=== PATIENT | male | born 1930 | race Caucasian/White ===

== ENCOUNTER 2018-02-08 11:39 | Observation (INO) ==
[2018-02-08] MEDS ORDERED: Isovue-370 500 ML INFUS..BTL IV ONE (12:31)
[2018-02-08] MEDS ORDERED: Ondansetron 4 MG/2 ML VIAL IVP ONE (12:33)
[2018-02-08] MEDS ORDERED: *HR* HYDROmorphone (PF) 1 MG/ML SYRINGE IVP ONE (12:33)
--- NOTE | 2018-02-08 12:35 | Emergency Department Note ---
Disposition Clinical Impression: Welsh catheter in place UTI (urinary tract infection) Qualifiers: Urinary tract infection type: catheter-associated UTI Indwelling urinary catheter type: unspecified Encounter type: initial encounter Qualified Code(s): T83.511A - Infection and inflammatory reaction due to indwelling urethral catheter, initial encounter; N39.0 - Urinary tract infection, site not specified Hematuria Qualifiers: Hematuria type: gross Qualified Code(s): R31.0 - Gross hematuria Disposition: Admitted As Inpatient Condition: Good Forms: ED Satisfaction Letter General Adult HPI - General Chief complaint: ED Urogenital-Male Stated complaint: Bladder Spasms Time Seen by Provider: 02/08/18 11:54 Source: patient Limitations: no limitations Nursing Notes Reviewed: Yes Vital Signs Reviewed: Yes - History of Present Illness HPI Narrative: Patient presenting today for evaluation of pain and "bladder spasms". The patient has a history of recent urology procedure. Patient has been seen by Dr. Quinn. Dr. Quinn did call me prior to be writing the note and explained this as a tracheotomy. It appears on exam that he opened the foreskin and dilated the meatus. Patient has a 14-[place] catheter that has been placed that was very difficult to placed by urology and urology does not recommend removal. The patient states that he has had lower abdominal pain with associated hematuria. Patient has had leakage around the catheter causing him to need to wear depends. The patient will undergo further blood work as well as CT imaging to further evaluate pain and condition. Pain Scale: 8 - Related Data Home Medications Medication Instructions Recorded Confirmed Aspirin [Lo-Dose Aspirin EC] 81 mg PO DAILY 06/03/16 06/03/16 Cholecalciferol (Vitamin D3) 1,000 unit PO DAILY 06/03/16 06/03/16 [Vitamin D3] Clotrimazole 1% CRM [Lotrimin 1%] 06/03/16 Famotidine [Pepcid] 40 mg PO DAILY 06/03/16 06/03/16 Gabapentin [Neurontin] 300 mg PO TID PRN 06/03/16 06/03/16 Meclizine [Antivert] 25 mg PO BID PRN 06/03/16 06/03/16 Melatonin [Melatin] 3 mg PO HS 06/03/16 06/03/16 Multivitamin [Multivitamins] 1 tab PO DAILY 06/03/16 06/03/16 Pantoprazole Sodium 40 mg PO DAILY 06/03/16 06/03/16 Tamsulosin [Flomax] 0.4 mg PO DAILY 06/03/16 06/03/16 clonazePAM [Klonopin] 0.5 mg PO BID 06/03/16 06/03/16 Previous Rx's Medication Instructions Recorded Lactobacillus [Culturelle] 1 each PO BID #10 cap.sprink 06/05/16 levoFLOXacin [Levaquin] 500 mg PO DAILY #5 tablet 06/05/16 Allergies Allergy/AdvReac Type Severity Reaction Status Date / Time No Known Allergies Allergy Verified 06/03/16 19:38 Review of Systems: As Per HPI Constitutional: Denies: fever, chills Cardiovascular: Denies: chest pain, palpitations Respiratory: Denies: cough, dyspnea Gastrointestinal: Reports: abdominal pain, nausea. Denies: vomiting, diarrhea Genitourinary: Reports: other (recent welsh with hematuria) Integumentary: Denies: rash, abrasion Neurological: Denies: headache, weakness Past Medical History - Past Medical History Medical history: Reports: cancer, GERD, other Surgical history: Reports: herniorrhaphy Psychiatric history: Reports: anxiety - Social History Smoking Status: Never smoker Smokeless Tobacco Status: No Alcohol use: Reports: none Drug use: Reports: none Physical Exam General: distress secondary to pain and spasms. Head: Normocephalic Atraumatic Eyes: PERRL ENT: Airway patent, no stridor Neck: supple Chest: Lungs clear to auscultation bilateral Cardiac: Regular rhythm Abdomen: soft, moderate tenderness to suprapubic region with associated gaurding. No rebound or CVA tenderness Welsh in place wiht pain to glans penis. Asssocated posterior slit without erythema. Musculoskeletal: Calves symmetric, nontender Skin: No rash, normal skin tone Neuro: awake, alert, hard of hearing. - General Limitations: no limitations General appearance: alert Course - Consultations Consultation #1: Discussed with urology. Complicated meatotomy. Do not remove Welsh. Will be evaluated in patient. Recommends belladonna/opium suppository for spasms. Consultation #2: Discussed with hospitalist. Patient accepted for admission. Vital Signs Temperature 98.2 F 02/08/18 11:41 Pulse Rate 104 02/08/18 11:41 Respiratory Rate 18 02/08/18 11:41 Blood Pressure 131/62 02/08/18 11:41 O2 Sat by Pulse Oximetry 96 02/08/18 11:41 Temperature 98.2 F 02/08/18 12:17 Pulse Rate 104 02/08/18 12:17 Respiratory Rate 18 02/08/18 12:17 Blood Pressure 131/62 02/08/18 12:17 O2 Sat by Pulse Oximetry 96 02/08/18 12:17 Oxygen Delivery Oxygen Delivery Room Air Medical Decision Making - Lab Data Result diagrams: 02/08/18 12:30 02/08/18 12:30 Lab Results 02/08/18 02/08/18 02/08/18 Range/Units 12:30 12:30 12:30 WBC 21.8 H (4.3-11.1) K/mcL RBC 4.89 (4.19-5.50) M/mcL Hgb 15.1 (12.9-16.9) g/dL Hct 44.9 (37.5-50.1) % MCV 91.8 (83.0-100.0) fL MCH 30.9 (28.0-33.3) pg MCHC 33.6 (31.6-35.5) g/dL RDW 14.3 (11.5-14.5) % Plt Count 181 (140-400) K/mcL MPV 11.3 (9.4-12.4) fL Immature Gran % 0.8 (0-4) % Seg Neutrophils % 88.4 % Lymphocytes % 3.1 % Monocytes % 7.6 % Eosinophils % 0.0 % Basophils % 0.1 % Neutrophils # 19.2 H (1.6-8.9) K/mcL Lymphocytes # 0.7 (0.6-4.6) K/mcL Monocytes # 1.7 H (0.0-1.3) K/mcL Eosinophils # 0.0 (0.0-0.6) K/mcL Basophils # 0.0 (0.0-0.2) K/mcL PT 14.3 H (9.4-12.1) Seconds INR 1.3 Sodium 136 (136-145) mEq/L Potassium 4.2 (3.5-5.1) mEq/L Chloride 104 (98-107) mEq/L Carbon Dioxide 26 (23-29) mEq/L BUN 25 H (8-23) mg/dL Creatinine 1.23 (0.70-1.30) mg/dL Est GFR ( Amer) > 60 (> 60) Est GFR (Non-Af Amer) 56 L (> 60) BUN/Creatinine Ratio 20 (6-26) Glucose 114 H (70-105) mg/dL Calculated Osmolality 287 (280-300) Calcium 9.1 (8.6-10.3) mg/dL Total Bilirubin 1.2 H (0.3-1.0) mg/dL AST 11 L (13-39) Units/L ALT 10 (7-52) Units/L Alkaline Phosphatase 69 (34-104) Units/L Serum Total Protein 6.8 (6.4-8.9) g/dL Albumin 3.7 (3.5-5.7) g/dL Globulin 3.1 (2.4-3.5) g/dL Albumin/Globulin Ratio 1.2 (1.1-2.2) Urine Color (Yellow) Urine Clarity (Clear) Urine pH (5.0-8.0) pH Units Ur Specific [place] (1.010-1.025) Urine Protein (Neg-Trace) mg/dL Urine Glucose (UA) (Normal) mg/dL Urine Ketones (Negative) mg/dL Urine Blood (Negative) Urine Nitrite (Negative) Urine Bilirubin (Negative) Urine Urobilinogen (Normal) mg/dL Ur Leukocyte Esterase (Negative) Urine Microscopic RBC (0-3) per hpf Urine Microscopic WBC (0-3) per hpf Ur Squamous Epith Cells (None-Few) per lpf Urine Bacteria (None-Few) per hpf Hyaline Casts (None-Few) per lpf Ur Culture Indicated? (NO) 02/08/18 Range/Units 14:20 WBC (4.3-11.1) K/mcL RBC (4.19-5.50) M/mcL Hgb (12.9-16.9) g/dL Hct (37.5-50.1) % MCV (83.0-100.0) fL MCH (28.0-33.3) pg MCHC (31.6-35.5) g/dL RDW (11.5-14.5) % Plt Count (140-400) K/mcL MPV (9.4-12.4) fL Immature Gran % (0-4) % Seg Neutrophils % % Lymphocytes % % Monocytes % % Eosinophils % % Basophils % % Neutrophils # (1.6-8.9) K/mcL Lymphocytes # (0.6-4.6) K/mcL Monocytes # (0.0-1.3) K/mcL Eosinophils # (0.0-0.6) K/mcL Basophils # (0.0-0.2) K/mcL PT (9.4-12.1) Seconds INR Sodium (136-145) mEq/L Potassium (3.5-5.1) mEq/L Chloride (98-107) mEq/L Carbon Dioxide (23-29) mEq/L BUN (8-23) mg/dL Creatinine (0.70-1.30) mg/dL Est GFR ( Amer) (> 60) Est GFR (Non-Af Amer) (> 60) BUN/Creatinine Ratio (6-26) Glucose (70-105) mg/dL Calculated Osmolality (280-300) Calcium (8.6-10.3) mg/dL Total Bilirubin (0.3-1.0) mg/dL AST (13-39) Units/L ALT (7-52) Units/L Alkaline Phosphatase (34-104) Units/L Serum Total Protein (6.4-8.9) g/dL Albumin (3.5-5.7) g/dL Globulin (2.4-3.5) g/dL Albumin/Globulin Ratio (1.1-2.2) Urine Color Cecilia A (Yellow) Urine Clarity Turbid A (Clear) Urine pH 6.5 (5.0-8.0) pH Units Ur Specific [place] 1.021 (1.010-1.025) Urine Protein >=300 H (Neg-Trace) mg/dL Urine Glucose (UA) Normal (Normal) mg/dL Urine Ketones 15 H (Negative) mg/dL Urine Blood Large H (Negative) Urine Nitrite Positive A (Negative) Urine Bilirubin Moderate H (Negative) Urine Urobilinogen Normal (Normal) mg/dL Ur Leukocyte Esterase Large H (Negative) Urine Microscopic RBC TNTC H (0-3) per hpf Urine Microscopic WBC TNTC H (0-3) per hpf Ur Squamous Epith Cells Many H (None-Few) per lpf Urine Bacteria Many H (None-Few) per hpf Hyaline Casts None Seen (None-Few) per lpf Ur Culture Indicated? NO. A (NO)
[2018-02-08 12:46] LABS: Basophils % 0.1 %; Hematocrit 44.9 % (37.5-50.1); Hemoglobin 15.1 g/dL (12.9-16.9); Immature Granulocytes % 0.8 % (0-4); Lymphocytes # 0.7 K/mcL (0.6-4.6); Lymphocytes % 3.1 %; Mean Corpuscular HGB Conc 33.6 g/dL (31.6-35.5); Mean Corpuscular Hemoglobin 30.9 pg (28.0-33.3); Mean Corpuscular Volume 91.8 fL (83.0-100.0); Mean Platelet Volume 11.3 fL (9.4-12.4); Monocytes # 1.7 K/mcL (0.0-1.3); Monocytes % 7.6 %; Neutrophils # 19.2 K/mcL (1.6-8.9); Platelet Count 181 K/mcL (140-400); Red Blood Count 4.89 M/mcL (4.19-5.50); Red Cell Distribution Width 14.3 % (11.5-14.5); Segmented Neutrophils % 88.4 %
[2018-02-08 12:54] LABS: INR 1.3; Prothrombin Time 14.3 Seconds (9.4-12.1)
[2018-02-08 13:06] LABS: Alanine Aminotransferase 10 Units/L (7-52); Albumin 3.7 g/dL (3.5-5.7); Albumin/Globulin Ratio 1.2 (1.1-2.2); Alkaline Phosphatase 69 Units/L (34-104); Aspartate Amino Transferase 11 Units/L (13-39); BUN/Creatinine Ratio 20 (6-26); Bilirubin,Total 1.2 mg/dL (0.3-1.0); Blood Urea Nitrogen 25 mg/dL (8-23); Calcium 9.1 mg/dL (8.6-10.3); Carbon Dioxide 26 mEq/L (23-29); Chloride 104 mEq/L (98-107); Globulin 3.1 g/dL (2.4-3.5); Glucose 114 mg/dL (70-105); Osmolality,Calculated 287 (280-300); Potassium 4.2 mEq/L (3.5-5.1); Sodium 136 mEq/L (136-145); Total Protein 6.8 g/dL (6.4-8.9); eGFR For Non-African Americans 56 (> 60)
[2018-02-08] MEDS ORDERED: *HR* Belladonna Alkaloids/Opium 30 MG RECTAL SUPPOSITORY RC STA (13:21)
[2018-02-08 14:53] LABS: Bilirubin,Urine Moderate (Negative); Blood,Urine Large (Negative); Clarity,Urine Turbid (Clear); Glucose,Urine (UA) Normal (Normal); Ketones,Urine 15 mg/dL (Negative); Leukocyte Esterase,Urine Large (Negative); Nitrite,Urine Positive (Negative); PH,Urine 6.5 pH Units (5.0-8.0); Protein,Urine >=300 mg/dL (Neg-Trace); Specific Gravity,Urine 1.021 (1.010-1.025); Urobilinogen,Urine Normal (Normal)
[2018-02-08 14:55] LABS: Bacteria,Urine Many per hpf (None-Few); Hyaline Casts,Urine None Seen per lpf (None-Few); RBC,Urine TNTC per hpf (0-3); Squamous Epithelial Cell,Urine Many per lpf (None-Few); WBC,Urine TNTC per hpf (0-3)
[2018-02-08 14:57] LABS: Color,Urine Amber (Yellow)
[2018-02-08] MEDS ORDERED: Gabapentin 300 MG CAPSULE PO PRN (16:47)
[2018-02-08] MEDS ORDERED: *HR* Belladonna Alkaloids/Opium 30 MG RECTAL SUPPOSITORY RC PRN (16:49)
[2018-02-08] MEDS ORDERED: Acetaminophen 325 MG TABLET PO PRN (16:50)
[2018-02-08] MEDS ORDERED: Naloxone 0.4 MG/ML INJ IVP PRN (16:50)
--- NOTE | 2018-02-08 16:51 | Urology - Consult Note ---
Date of Encounter: 02/08/18 Time of Encounter: 16:49 - Assessment and Plan (1) Hematuria Current Visit: Yes Status: Acute Assessment and plan: More likely is concentrated urine. Patient does have some hematuria but this is minimal. No need to change catheter at this time Qualifiers: Hematuria type: gross Qualified Code(s): R31.0 - Gross hematuria (2) Urinary tract infection Current Visit: Yes Status: Acute Assessment and plan: Recommend broad-spectrum antibiotics until cultures return. I have added B and O suppositories to the patient's medication regimen as the patient is having significant bladder spasms. Qualifiers: Urinary tract infection type: catheter-associated UTI Indwelling urinary catheter type: unspecified Encounter type: initial encounter Qualified Cod e(s): T83.511A - Infection and inflammatory reaction due to indwelling urethral catheter, initial encounter; N39.0 - Urinary tract infection, site not specified Urology CN:HPI Consult date: 02/08/18 Reason for consult Urology: Other (uti) Requesting physician: Yunier Dolan History of present illness: Daniel is an 87-year-old male who underwent a meatotomy this past Wednesday. Patient presented to his primary care provider's office today secondary to fever. Patient was then moved to the emergency department. CT scan was performed which showed a significantly trabeculated bladder with some left-sided hydronephrosis. Patient also with a leukocytosis of 21,000. Patient with significant bladder spasms leaking around his catheter. Past Med Surg Social Fam HX - Past Medical History Medical history: cancer, GERD, other Additional medical history: skin Psychiatric history: anxiety - Past Surgical History Surgical History: herniorrhaphy - Social History Smoking Status: Never smoker Smokeless Tobacco Status: No Alcohol use: none Drug use: none Medications and Allergies Aspirin [Lo-Dose Aspirin EC] 81 mg PO DAILY 06/03/16 [History] Cholecalciferol (Vitamin D3) [Vitamin D3] 1,000 unit PO DAILY 06/03/16 [History] Famotidine [Pepcid] 40 mg PO BID 06/03/16 [History] Gabapentin [Neurontin] 300 mg PO TID PRN 06/03/16 [History] Melatonin [Melatin] 3 mg PO HS 06/03/16 [History] Multivitamin [Multivitamins] 1 tab PO DAILY 06/03/16 [History] Pantoprazole Sodium 40 mg PO BID 06/03/16 [History] Finasteride [Proscar] 5 mg PO DAILY 02/08/18 [History] Fluticasone Propionate Nasal [Flonase] 1 spr NS DAILY 02/08/18 [History] Sertraline [Zoloft] 150 mg PO DAILY 02/08/18 [History] Sucralfate [Carafate] 1 gm PO QIDAC 02/08/18 [History] predniSONE [PredniSONE] See Taper PO AD 02/08/18 [History] Allergy/AdvReac Type Severity Reaction Status Date / Time No Known Allergies Allergy Verified 06/03/16 19:38 Review of Systems - Constitutional fever(s), no chills - EENT Nose, mouth and throat: no dizziness - Cardiovascular no chest pain - Respiratory no cough - Gastrointestinal abdominal pain, no nausea, no vomiting Exam Initial Vital Signs Temp Pulse Resp BP Pulse Ox 98.2 F 104 18 131/62 96 02/08/18 11:41 02/08/18 11:41 02/08/18 11:41 02/08/18 11:41 02/08/18 11:41 - General physical appearance Present: well developed, well nourished - Eyes Present: PERRL - Respiratory Present: normal respiratory effort - Cardiovascular Cardiovascular exam IM: RRR - Abdomen Abdomen: Present: soft - Genitourinary other (Catheter with dark urine in tubing, catheter irrigated well) Urology Results - Labs 02/08/18 12:30 02/08/18 12:30 Abnormal lab results WBC 21.8 K/mcL (4.3-11.1) H 02/08/18 12:30 Neutrophils # 19.2 K/mcL (1.6-8.9) H 02/08/18 12:30 Monocytes # 1.7 K/mcL (0.0-1.3) H 02/08/18 12:30 PT 14.3 Seconds (9.4-12.1) H 02/08/18 12:30 BUN 25 mg/dL (8-23) H 02/08/18 12:30 Est GFR (Non-Af Amer) 56 (> 60) L 02/08/18 12:30 Glucose 114 mg/dL (70-105) H 02/08/18 12:30 Total Bilirubin 1.2 mg/dL (0.3-1.0) H 02/08/18 12:30 AST 11 Units/L (13-39) L 02/08/18 12:30 Urine Color Cec[place] (Yellow) A 02/08/18 14:20 Urine Clarity Turbid (Clear) A 02/08/18 14:20 Urine Protein >=300 mg/dL (Neg-Trace) H 02/08/18 14:20 Urine Ketones 15 mg/dL (Negative) H 02/08/18 14:20 Urine Blood Large (Negative) H 02/08/18 14:20 Urine Nitrite Positive (Negative) A 02/08/18 14:20 Urine Bilirubin Moderate (Negative) H 02/08/18 14:20 Ur Leukocyte Esterase Large (Negative) H 02/08/18 14:20 Urine Microscopic RBC TNTC per hpf (0-3) H 02/08/18 14:20 Urine Microscopic WBC TNTC per hpf (0-3) H 02/08/18 14:20 Ur Squamous Epith Cells Many per lpf (None-Few) H 02/08/18 14:20 Urine Bacteria Many per hpf (None-Few) H 02/08/18 14:20 Ur Culture Indicated? NO. (NO) A 02/08/18 14:20 Diabetes panel 02/08/18 Range/Units 12:30 Sodium 136 (136-145) mEq/L Potassium 4.2 (3.5-5.1) mEq/L Chloride 104 (98-107) mEq/L Carbon Dioxide 26 (23-29) mEq/L BUN 25 H (8-23) mg/dL Creatinine 1.23 (0.70-1.30) mg/dL Glucose 114 H (70-105) mg/dL Calcium 9.1 (8.6-10.3) mg/dL AST 11 L (13-39) Units/L ALT 10 (7-52) Units/L Alkaline Phosphatase 69 (34-104) Units/L Albumin 3.7 (3.5-5.7) g/dL Calcium panel 02/08/18 Range/Units 12:30 Calcium 9.1 (8.6-10.3) mg/dL Albumin 3.7 (3.5-5.7) g/dL Pituitary panel 02/08/18 Range/Units 12:30 Sodium 136 (136-145) mEq/L Potassium 4.2 (3.5-5.1) mEq/L Chloride 104 (98-107) mEq/L Carbon Dioxide 26 (23-29) mEq/L BUN 25 H (8-23) mg/dL Creatinine 1.23 (0.70-1.30) mg/dL Glucose 114 H (70-105) mg/dL Calcium 9.1 (8.6-10.3) mg/dL Adrenal panel 02/08/18 Range/Units 12:30 Sodium 136 (136-145) mEq/L Potassium 4.2 (3.5-5.1) mEq/L Chloride 104 (98-107) mEq/L Carbon Dioxide 26 (23-29) mEq/L BUN 25 H (8-23) mg/dL Creatinine 1.23 (0.70-1.30) mg/dL Glucose 114 H (70-105) mg/dL Calcium 9.1 (8.6-10.3) mg/dL Total Bilirubin 1.2 H (0.3-1.0) mg/dL AST 11 L (13-39) Units/L ALT 10 (7-52) Units/L Alkaline Phosphatase 69 (34-104) Units/L Albumin 3.7 (3.5-5.7) g/dL All other labs normal. - Imaging CT scan - abdomen: image reviewed CT scan - pelvis: image reviewed Consult Discharge Plan - Plan Referrals: Jordin Jacobo DO [Primary Care Provider] -
[2018-02-08] MEDS ORDERED: Dextrose Gel 15 GM/37.5 ML TUBE PO PRN ×2 (16:57)
[2018-02-08] MEDS ORDERED: D5% in Water 1,000 ML IVC PRN (16:57)
[2018-02-08] MEDS ORDERED: *HR* Dextrose 50 % in Water (Syg) 50 ML SYRINGE IVP PRN (16:57)
[2018-02-08] MEDS ORDERED: *HR* LORazepam 2 MG/ML VIAL IVP PRN (17:00)
[2018-02-08] MEDS ORDERED: Ondansetron 4 MG/2 ML VIAL IVP PRN (17:01)
--- NOTE | 2018-02-08 17:12 | Internal Med History&Physical ---
<DemondnikkokarlKwesi - Last Filed: 02/08/18 18:38> Date of Encounter: 02/08/18 Time of Encounter: 16:00 Internal Medicine - H&P: HPI Chief complaint: UTI/Abdominal pain Admitted From: Emergency Dept Plans for Post Hospital Care: Home History of present illness: Mr. Coleman is a 87 year old male w/PMH of cancer, GERD, and anxiety presents from the ED w/CC of abdominal pain and fever. Pt. reports having urinary difficulties w/a meatus that would close. Reports present since and having several procedures in the past. Pt. reports having a meatotomy on Wednesday w/placement of indwelling urethral catheter following the procedure. Reports fever today w/significant urinary leakage from the catheter. Hematuria present as well. Abdominal pain likely d/t bladder spasms. Pt. reports abdominal pain, urinary incontinence, and generalized weakness but denies recent illness, chills, nausea, vomiting, headache, changes in vision, chest pain, shortness of breath, diarrhea, constipation, cough, chest congestion, dizziness, lightheadedness, numbness, tingling, pre-syncope, or syncope. Past Med Surg Social Fam HX - Past Medical History Source: patient, old records reviewed, obtained from family Medical history: cancer, GERD, other (Chronic hypoglycemia) Additional medical history: skin Psychiatric history: anxiety - Past Surgical History Surgical History: herniorrhaphy - Social History Smoking Status: Never smoker Smokeless Tobacco Status: No Alcohol use: none Drug use: none Occupational status: retired Current living situation: Home Activity Level: Uses cane/walker Recent Out of Country Travel Within the Last 8 Weeks: No Exposure or Possible Exposure to Illness During Travel: No - Family History Father Race: Family Member Ethnicity: Non- Living Status: Age at : 65 Cause of : [place] Hx Family Cardiac Disorders: Yes ([place], CAD) Mother Race: Family Member Ethnicity: Non- Living Status: Age at : 101 Cause of : Old age Hx Family Medical Disorders: No Sister Race: Family Member Ethnicity: Non- Living Status: Age at : 66 Cause of : Stomach cancer Hx Family Cancer: Yes (Stomach (22 tumors)) Internal Medicine - H&P: Meds RX: Aspirin [Lo-Dose Aspirin EC] 81 mg PO DAILY 06/03/16 [History] RX: Cholecalciferol (Vitamin D3) [Vitamin D3] 1,000 unit PO DAILY 06/03/16 [History] RX: Famotidine [Pepcid] 40 mg PO BID 06/03/16 [History] RX: Gabapentin [Neurontin] 300 mg PO TID PRN 06/03/16 [History] RX: Melatonin [Melatin] 3 mg PO HS 06/03/16 [History] RX: Multivitamin [Multivitamins] 1 tab PO DAILY 06/03/16 [History] RX: Pantoprazole Sodium 40 mg PO BID 06/03/16 [History] RX: Finasteride [Proscar] 5 mg PO DAILY 02/08/18 [History] RX: Fluticasone Propionate Nasal [Flonase] 1 spr NS DAILY 02/08/18 [History] RX: Sertraline [Zoloft] 150 mg PO DAILY 02/08/18 [History] RX: Sucralfate [Carafate] 1 gm PO QIDAC 02/08/18 [History] RX: predniSONE [PredniSONE] See Taper PO AD 02/08/18 [History] Levofloxacin [Levaquin] 500 mg PO ONCE #11 tablet 02/10/18 [Rx] RX: Belladonna Alkaloids/Opium [B + O] 30 mg RC Q6H PRN 10 Days #15 supp.rect 02/10/18 [Rx] Allergy/AdvReac Type Severity Reaction Status Date / Time No Known Allergies Allergy Verified 06/03/16 19:38 All Systems PM: A 10-system review of systems was performed and is negative for pertinent findings except as documented above in the HPI. - Constitutional Constitutional: as per HPI, fatigue, weakness, no chills, no fever(s), no night sweats - EENT Eyes: no change in vision, no discharge, no pain, no photophobia Ears: no ear discharge, no ear pain, no tinnitus Nose, mouth and throat: no dysphagia, no nasal discharge, no neck pain, no sore throat - Breasts Breasts: as per HPI - Cardiovascular Cardiovascular ROS IM: no chest pain, no diaphoresis, no dyspnea, no lightheadedness, no palpitations, no syncope - Respiratory Respiratory: no cough, no dyspnea, no wheezing, no excessive phlegm production - Gastrointestinal Gastrointestinal: as per HPI, abdominal pain, cramping, no diarrhea, no hematemesis, no hematochezia, no melena, no nausea, no vomiting - Genitourinary Genitourinary ROS male: as per HPI, hematuria, urinary frequency, urinary incontinence - Musculoskeletal Musculoskeletal ROS IM: no numbness, no tingling - Integumentary Integumentary IM: no rash, no unusual bruising - Neurological Neurological ROS: as per HPI, weakness, no confusion, no convulsions, no focal weakness, no numbness, no tingling, no tremor(s) - Psychiatric Psychiatric: as per HPI, anxiety - Endocrine Endocrine IM: as per HPI - Hematologic/Lymphatic Hematologic/Lymphatic: no easy bruising - Allergic/Immunologic Allergic/Immunologic: as per HPI - Constitutional Vitals: Temp Pulse Resp BP Pulse Ox 98.2 F 104 18 131/62 96 02/08/18 12:17 02/08/18 12:17 02/08/18 12:17 02/08/18 12:17 02/08/18 12:17 General appearance: Present: cooperative, mild distress (Urinary incontinence and abdominal cramping), A&O X 3, pleasant, answers questions appropriately Exam: Patient examined at bedside in ED. Patient reports significant urinary incontinence from indwelling Urbina catheter as well as abdominal cramping. Patient also reports anxiety which began in June with the loss of his . Patient's sister reports patient shakes and stammers due to anxiety, not Parkinson's. Patient also reported fever prior to coming to ED. Denies any other complaints or symptoms at this time and reports pain is not well-managed. VS: 98.2F temp, HR 104, RR 18, BP 131/62, SPO2 96% on room air. - Head Head exam: Present: atraumatic, normocephalic - Eye Eye exam: Present: PERRL, conjuntiva pink, sclera anicteric Pupils: Present: PERRL - ENT ENT exam: Present: normal exam - Neck Neck exam general surgery: Present: normal inspection, supple, trachea midline. Absent: lymphadenopathy - Respiratory Respiratory exam: Present: CTAB. Absent: accessory muscle use, rales, rhonchi, wheezes - Cardiovascular Cardiovascular exam: Present: +S1, +S2, tachycardia - GI/Abdominal GI/Abdominal exam: Present: guarding (Suprapubic area), normal bowel sounds, soft, tenderness, no peritoneal signs. Absent: distended - Rectal Rectal exam: Present: deferred - exam: Present: normal inspection External exam: Present: erythema (Mild erythema from meatotomy. No edema noted. Urinary incontinence substantial.), normal external exam - Extremities Exam Extremities exam: Present: warm, radial pulses palpable and symmetrical. Absent: calf tenderness, cyanotic, pedal edema - Back Exam Back exam: Present: normal inspection - Neurological Exam Neurological exam: Present: alert, CN II-XII intact, oriented X3, no focal deficits. Absent: pronater drift, facial droop, speech deficit - Psychiatric Psychiatric exam: Present: normal affect, normal mood - Skin Skin exam: Present: dry, intact Internal Med - H&P Results - Labs CBC & Chem 7: 02/08/18 12:30 02/08/18 12:30 Labs: Short CBC 02/08/18 Range/Units 12:30 WBC 21.8 H (4.3-11.1) K/mcL Hgb 15.1 (12.9-16.9) g/dL Hct 44.9 (37.5-50.1) % Plt Count 181 (140-400) K/mcL Neutrophils # 19.2 H (1.6-8.9) K/mcL BMP 02/08/18 12:30 Sodium 136 Potassium 4.2 Chloride 104 Carbon Dioxide 26 BUN 25 H Creatinine 1.23 Glucose 114 H Calcium 9.1 Liver Function 02/08/18 Range/Units 12:30 Total Bilirubin 1.2 H (0.3-1.0) mg/dL AST 11 L (13-39) Units/L ALT 10 (7-52) Units/L Alkaline Phosphatase 69 (34-104) Units/L Albumin 3.7 (3.5-5.7) g/dL Urine 02/08/18 Range/Units 14:20 Urine Color Cecilia A (Yellow) Urine Clarity Turbid A (Clear) Urine pH 6.5 (5.0-8.0) pH Units Ur Specific [place] 1.021 (1.010-1.025) Urine Protein >=300 H (Neg-Trace) mg/dL Urine Glucose (UA) Normal (Normal) mg/dL - Impressions ITS Impressions Abdomen/Pelvis CT 02/08/18 12:31 IMPRESSION: 1. Asymmetric bladder wall thickening with cystic changes seen within the thickened bladder wall and resultant post obstructive uropathy involving the left kidney. This may be posttraumatic given his urologic procedure. However, a neoplastic process cannot be excluded. 2. Moderate size hiatal hernia. 3. Diverticulosis without obvious inflammation. D/ / Jama Hayes MD / Jama Hayes MD Interpreting Provider: Jama Hayes MD - Diagnostic Studies CT scan - abdomen Additional comments: Impressions Abdomen/Pelvis CT 02/08/18 12:31 IMPRESSION: 1. Asymmetric bladder wall thickening with cystic changes seen within the thickened bladder wall and resultant post obstructive uropathy involving the left kidney. This may be posttraumatic given his urologic procedure. However, a neoplastic process cannot be excluded. 2. Moderate size hiatal hernia. 3. Diverticulosis without obvious inflammation. D/ / Jama Hayes MD / Jama Hayes MD Interpreting Provider: Jama Hayes MD - Assessment and plan (1) Sepsis Status: Acute Assessment and plan: Acute sepsis criteria from current UTI w/WBC of 21.8 and HR of 104. Stat urine cultures ordered. Lactic acid ordered. Continuous cardiac telemetry. Supplemental O2 w/titration and SpO2 monitoring. Ciprofloxacin IVPB ordered in ED for UTI which will be DCd. Will administer IVPB Zosyn 3.375 gm Q8HR for complicated UTI w/Urbina catheter in place. Will adjust abx coverage based on culture results. Blood cultures x 2 ordered. Pt. to be monitored closely for signs of increasing infection or signs of sepsis, respiratory, and/or cardiac distress. F/u labs to be monitored closely. Pt. discussed w/Dr. Tavera who is in agreement w/plan of care. Pt. is high risk for further morbidity and complications due to current sepsis criteria, UTI that is complicated with Urbina catheter in place, history of UTIs, status post-meatotomy, current hematuria, and risk factors. Observation. Qualifiers: Sepsis type: sepsis due to unspecified organism Qualified Code(s): A41.9 - Sepsis, unspecified organism (2) Urinary tract infection Status: Acute Assessment and plan: Acute on chronic UTI. Pt. reports hx of chronic UTIs d/t meatus closure problems throughout his lifetime. Urine culture ordered stat. Pt. given ciprofloxacin in ED for infection coverage. Will DC ciprofloxacin and administer IVPB Zosyn 3.375 gm every 8 hour for complicated UTI with catheter in place. Monitor I&O and f/u labs. Will adjust abx coverage based on culture results if warranted. Qualifiers: Urinary tract infection type: catheter-associated UTI Indwelling urinary catheter type: unspecified Encounter type: initial encounter Qualified Code(s): T83.511A - Infection and inflammatory reaction due to indwelling urethral catheter, initial encounter; N39.0 - Urinary tract infection, site not specified (3) Abdominal pain Status: Acute Assessment and plan: Acute abdominal pain in suprapubic region likely d/t UTI and current bladder sp asms. Pt. is status post-meatotomy. Urology consulted and I appreciate the consult and recommendations. Per Urology, belladonna alkaloids 30 mg RC every 6 hours when necessary for bladder spasms and pain. Qualifiers: Abdominal location: lower abdomen, unspecified Qualified Code(s): R10.30 - Lower abdominal pain, unspecified (4) Hematuria Status: Acute Assessment and plan: Acute hematuria r/t status post-meatotomy on Wednesday. 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 Per Urology, urine most likely concentrated and Urbina is not to be changed at this time. Bilateral SCDs on LEs for DVT prophylaxis d/t hematuria. Qualifiers: Hematuria type: gross Qualified Code(s): R31.0 - Gross hematuria (5) MILES (acute kidney injury) Status: Acute Assessment and plan: Acute kidney injury, likely d/r current UTI versus status post-meatotomy on Wednesday. CT of the abdomen/pelvis today shows asymmetric bladder wall thickening with cystic changes seen within the thickened bladder wall and resultant postobstructive uropathy involving the left kidney. This may be posttraumatic given his urologic procedure. However and neoplastic process cannot be excluded. Moderate-sized hiatal hernia. Diverticulosis without obvious inflammation. Monitor I&O and f/u labs. (6) Urbina catheter in place Status: Acute Assessment and plan: Acute indwelling urethral Urbina catheter from status post-meatotomy on Wednesday. Urology consulted and I appreciate the consulrt and recommendations as always. Per Urology, Urbina catheter is not to be changed at this time. Monitor I&O. Bladder scans PRN. (7) GERD (gastroesophageal reflux disease) Status: Chronic Assessment and plan: Hx of chronic GERD. Continue pts. PO Pepcid and Pantoprazole Sodium. IVP Zofran 4 mg Q6HR PRN for N/V. Qualifiers: Esophagitis presence: esophagitis presence not specified Qualified Code(s): K21.9 - Gastro-esophageal reflux disease without esophagitis (8) Anxiety Status: Chronic Assessment and plan: Hx of chronic anxiety which has been made worse since the pt. lost his in June. 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 Reports guilt r/t having to place in [facility] when she became too sick for him to care for. Continue pts. Zoloft and add IVP Ativan 1.0 mg Q6HR PRN. SW consult ordered to assess for counseling needs post-discharge. (9) History of skin cancer Status: Resolved Assessment and plan: Hx of basal cell carcinoma of the nose which pt. reports was removed years ago. Denies being followed or receiving any txs currently. (10) DVT prophylaxis Status: Acute Assessment and plan: Bilateral SCDs on LEs for DVT prophylaxis due to current hematuria. - Time Spent With Patient Total time spent is greater than 50% in coordination of care (as documented) at patient's floor/unit and/or counseling patient: Greater than 35 minutes <Freda Tavera - Last Filed: 02/14/18 08:00> Internal Medicine - H&P: HPI History of present illness: Mr. Coleman is a 87 year old male All Systems PM: A 10-system review of systems was performed and is negative for pertinent findings except as documented above in the HPI. - Constitutional Vitals: Temp Pulse Resp BP Pulse Ox 97.4 F L 76 16 118/87 95 02/10/18 07:14 02/10/18 07:14 02/10/18 07:14 02/10/18 07:14 02/10/18 07:14 Internal Med - H&P Results - Labs CBC & Chem 7: 02/10/18 04:16 02/10/18 04:16 - Impressions ITS Impressions Abdomen/Pelvis CT 02/08/18 12:31 IMPRESSION: 1. Asymmetric bladder wall thickening with cystic changes seen within the thickened bladder wall and resultant post obstructive uropathy involving the left kidney. This may be posttraumatic given his urologic procedure. However, a neoplastic process cannot be excluded. 2. Moderate size hiatal hernia. 3. Diverticulosis without obvious inflammation. D/ / Jama Hayes MD / Jama Hayes MD Interpreting Provider: Jama Hayes MD - Assessment and plan (1) Urinary tract infection Status: Resolved Qualifiers: Urinary tract infection type: catheter-associated UTI Indwelling urinary catheter type: indwelling urethral catheter Encounter type: initial encounter Qualified Code(s): T83.511A - Infection and inflammatory reaction due to indwelling urethral catheter, initial encounter; N39.0 - Urinary tract infection, site not specified (2) Hematuria Status: Resolved Qualifiers: Hematuria type: gross Qualified Code(s): R31.0 - Gross hematuria (3) Sepsis Status: Resolved Qualifiers: Sepsis type: sepsis due to unspecified organism Qualified Code(s): A41.9 - Sepsis, unspecified organism (4) History of skin cancer Status: Resolved (5) DVT prophylaxis Status: Acute (6) Abdominal pain Status: Resolved Qualifiers: Abdominal location: lower abdomen, unspecified Qualified Code(s): R10.30 - Lower abdominal pain, unspecified (7) GERD (gastroesophageal reflux disease) Status: Chronic Qualifiers: Esophagitis presence: esophagitis presence not specified Qualified Code(s): K21.9 - Gastro-esophageal reflux disease without esophagitis (8) Anxiety Status: Chronic - Time Spent With Patient Total time spent is greater than 50% in coordination of care (as documented) at patient's floor/unit and/or counseling patient: - Attending Attestation I personally and independently interviewed and examined the patient , and I reviewed the patient's medical record . I am in agreement with proposed assessment and proposed treatment plan. I discussed my findings and recommendation with the patient and answer his questions. The patient's medical records were edited to accurately reflect this encounter.
[2018-02-08] MEDS ORDERED: Acetaminophen 650 MG RECTAL SUPP RC ONE (18:09)
[2018-02-08] MEDS ORDERED: *HR* LORazepam 2 MG/ML VIAL IVP ONE (18:10)
[2018-02-08] MEDS: Piperacillin/Tazobactam 3.375 GM in 0.9 % Sodium Chloride Mini Bag 100 ML IVPB SCH (18:23)
[2018-02-08] MEDS: Famotidine 20 MG TABLET PO SCH (21:50)
[2018-02-08] MEDS: Melatonin 3 MG TABLET PO SCH (21:50)
[2018-02-08] MEDS: Sucralfate 1 GM TABLET PO SCH (21:50)
[2018-02-09] MEDS: Piperacillin/Tazobactam 3.375 GM in 0.9 % Sodium Chloride Mini Bag 100 ML IVPB SCH ×3 (00:39→16:13)
[2018-02-09 03:47] LABS: Basophils # 0.1 K/mcL (0.0-0.2); Basophils % 0.3 %; Eosinophils # 0.1 K/mcL (0.0-0.6); Eosinophils % 0.6 %; Hemoglobin 13.9 g/dL (12.9-16.9); Immature Granulocytes % 0.6 % (0-4); Lymphocytes # 1.7 K/mcL (0.6-4.6); Lymphocytes % 9.4 %; Mean Corpuscular HGB Conc 33.1 g/dL (31.6-35.5); Mean Corpuscular Hemoglobin 30.7 pg (28.0-33.3); Mean Corpuscular Volume 92.7 fL (83.0-100.0); Mean Platelet Volume 11.3 fL (9.4-12.4); Monocytes # 1.6 K/mcL (0.0-1.3); Monocytes % 8.5 %; Neutrophils # 14.9 K/mcL (1.6-8.9); Platelet Count 156 K/mcL (140-400); Red Blood Count 4.53 M/mcL (4.19-5.50); Red Cell Distribution Width 14.6 % (11.5-14.5); Segmented Neutrophils % 80.6 %
[2018-02-09 04:12] LABS: Alanine Aminotransferase 9 Units/L (7-52); Albumin 3.3 g/dL (3.5-5.7); Albumin/Globulin Ratio 1.2 (1.1-2.2); Alkaline Phosphatase 63 Units/L (34-104); Aspartate Amino Transferase 10 Units/L (13-39); BUN/Creatinine Ratio 19 (6-26); Bilirubin,Total 1.6 mg/dL (0.3-1.0); Blood Urea Nitrogen 23 mg/dL (8-23); Calcium 8.7 mg/dL (8.6-10.3); Carbon Dioxide 28 mEq/L (23-29); Chloride 102 mEq/L (98-107); Chol/HDL Ratio 1.9 (0-4.9); Cholesterol 151 mg/dL (< 200); Globulin 2.8 g/dL (2.4-3.5); Glucose 107 mg/dL (70-105); HDL Cholesterol 78 mg/dL (40-59); LDL Cholesterol,Calculated 58 mg/dL (0-99); Osmolality,Calculated 286 (280-300); Potassium 4.1 mEq/L (3.5-5.1); Sodium 136 mEq/L (136-145); Total Protein 6.1 g/dL (6.4-8.9); Triglycerides 74 mg/dL (< 150); eGFR For Non-African Americans 57 (> 60)
[2018-02-09] MEDS: Sucralfate 1 GM TABLET PO SCH ×4 (08:18→21:17)
[2018-02-09] MEDS: Famotidine 20 MG TABLET PO SCH (08:19)
[2018-02-09] MEDS: Multivit/Ca/Min/Fe/FA 1 TAB TABLET PO SCH (08:19)
[2018-02-09] MEDS: Aspirin Enteric Coated 81 MG Tablet PO SCH (08:19)
[2018-02-09] MEDS: Cholecalciferol (D-3) 1,000 UNIT TABLET PO SCH (08:19)
[2018-02-09] MEDS: Finasteride 5 MG TABLET PO SCH (08:19)
[2018-02-09] MEDS ORDERED: Fluticasone Propionate Nasal 50 MCG/SPRAY BOTTLE NS SCH (09:00)
--- NOTE | 2018-02-09 09:52 | Internal Med Progress Note ---
<Anmol De Paz - Last Filed: 02/09/18 17:50> Hospitalist Progress Note - Exam Vitals: Temp Pulse Resp BP Pulse Ox 97.8 F 78 16 106/60 96 02/09/18 07:44 02/09/18 07:44 02/09/18 07:44 02/09/18 07:44 02/09/18 09:00 - Assessment and Plan (1) Urinary tract infection Current Visit: Yes Status: Acute (2) Hematuria Current Visit: Yes Status: Acute (3) Sepsis Current Visit: Yes Status: Acute (4) History of skin cancer Current Visit: Yes Status: Resolved (5) DVT prophylaxis Current Visit: Yes Status: Acute (6) Abdominal pain Current Visit: Yes Status: Acute (7) GERD (gastroesophageal reflux disease) Current Visit: Yes Status: Chronic (8) Anxiety Current Visit: Yes Status: Chronic (9) Bladder spasm Current Visit: Yes Status: Acute - Time Spent with Patient Total time spent is greater than 50% in coordination of care (as documented) at patient's floor/unit and/or counseling patient: Internal Medicine: Result - Labs CBC & Chem 7: 02/09/18 03:19 02/09/18 03:19 Labs: Short CBC 02/09/18 Range/Units 03:19 WBC 18.5 H (4.3-11.1) K/mcL Hgb 13.9 (12.9-16.9) g/dL Hct 42.0 (37.5-50.1) % Plt Count 156 (140-400) K/mcL Neutrophils # 14.9 H (1.6-8.9) K/mcL BMP 02/09/18 03:19 Sodium 136 Potassium 4.1 Chloride 102 Carbon Dioxide 28 BUN 23 Creatinine 1.21 Glucose 107 H Calcium 8.7 Liver Function 02/09/18 Range/Units 03:19 Total Bilirubin 1.6 H (0.3-1.0) mg/dL AST 10 L (13-39) Units/L ALT 9 (7-52) Units/L Alkaline Phosphatase 63 (34-104) Units/L Albumin 3.3 L (3.5-5.7) g/dL - ABG Interpretation ABG results: PT/INR, D-dimer PT 14.3 Seconds (9.4-12.1) H 02/08/18 12:30 Consult Discharge Plan - Plan Referrals: Jordin Jacobo DO [Primary Care Provider] - - Attending Attestation I examined this patient and my medical decision-making was reviewed with the Resident Physician on 02/09/18. I agree with the documented findings, disposition and treatment plan as described except to the extent set forth below. Mr Coleman is currently admitted for sepsis related to CAUTI which was present on admission. He remains moderate to high risk due to potential for worsening clinical status. Mr Coleman has been up walking with PT. He is starting to feel better. Still has some bladder spasms. No fever or chills. No CP or SOB at this time. Very [place]. Exam alert Comfortable Mucus membranes dry Heart reg No wheeze abd soft No edema I/P 1. CAUTI - present on admission. Continue abx at this time. Anticipate d/c in next 24-48 hours 2. Bladder spasms - appreciate urology input Further diagnoses and plan as above. <Will Mancera - Last Filed: 02/09/18 18:47> Hospitalist Progress Note - Encounter Date of Encounter: 02/09/18 Time of Encounter: 09:30 - Subjective Interval History: Mr. Coleman is a pleasant 87-year-old male who was admitetd to the floor because of hematuria and abdominal pain. He Was seen at the bedside this morning. Endorses no abdominal pain and was in no acute distress. he continues to be on day 2 of Zosyn for his acute on chronic UTI. Patient has been recommended Belladone and Opiate suppositories for bladder spasms got his first dose today. Urine output on the catheter was 250 mL since last night. - Exam Vitals: Temp Pulse Resp BP Pulse Ox 97.8 F 78 16 106/60 96 02/09/18 07:44 02/09/18 07:44 02/09/18 07:44 02/09/18 07:44 02/09/18 07:44 Exam: Gen: No distress Resp: CArdio: GI: : - Assessment and Plan (1) Urinary tract infection Current Visit: Yes Status: Acute Assessment and Plan: - Has a history of UTI. 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 Suppository B and O recommended by urology for bladder spasms. urine culture pending . No indication for changing of welsh at the moment. (2) Sepsis Current Visit: Yes Status: Acute Assessment and Plan: - Currently Resolved. Patient came in with sepsis likely due to his acute and chronic UTI. WBC 21.8 and HR 104 on admission. Lactate was 0.9. -Patient was given ciprofloxacin in the ED. Given IV Zosyn 3.375 g every 8 hours. - On physical exam patient is no hematuria. Does not seem to be endorsing any suprapubic pain or pain at the site of Welsh catheter. -Blood cultures pending. De-escalate antibiotics once the results of blood cultures out. Continue to monitor. 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 - No evidence of bleeding from the urethra when I saw him this morning. - urology was most likely concentrated, no recommendations for change of Welsh has been made at this point which I am assuming is because patient recently had meatectomy 4 days ago (4) Abdominal pain Current Visit: Yes Status: Acute Assessment and Plan: - Patient came abdominal pain which could be likely due to bladder spasms secondary to meatotomy. Currently does not seem to be endorsing abdominal pain. - Urology has recommended B and A suppository (belladonna alkaloids 30 mg RC every 6 hours ) to help control his bladder spasm. (5) GERD (gastroesophageal reflux disease) Current Visit: Yes Status: Chronic Assessment and Plan: -Patient has a history of GERD - Currently on PO pantoprazole . (6) Anxiety Current Visit: Yes Status: Chronic Assessment and Plan: - Has a history of chronic anxiety. His anxiety has been compounded by the fact that he lost his this June dedicate the last 5 years. - New home meds sertraline from 50 mg and PO Ativan 1 mg every 6 hours when necessary - Less as per counseling needs when the patient is right for discharge.SW consult has an ordered (7) History of skin cancer Current Visit: Yes Status: Resolved Assessment and Plan: - Patient has a history of basal carcinoma of the nose she endorses "removed years ago. - Denies any further workup or follow-up to oncologist. (8) DVT prophylaxis Current Visit: Yes Status: Acute Assessment and Plan: Bilateral SCDs on LEs for DVT prophylaxis due to current hematuria. - Time Spent with Patient Total time spent is greater than 50% in coordination of care (as documented) at patient's floor/unit and/or counseling patient: Internal Medicine: Result - Labs CBC & Chem 7: 02/09/18 03:19 02/09/18 03:19 Labs: Short CBC 02/08/18 02/09/18 Range/Units 12:30 03:19 WBC 21.8 H 18.5 H (4.3-11.1) K/mcL Hgb 15.1 13.9 (12.9-16.9) g/dL Hct 44.9 42.0 (37.5-50.1) % Plt Count 181 156 (140-400) K/mcL Neutrophils # 19.2 H 14.9 H (1.6-8.9) K/mcL BMP 02/08/18 02/09/18 12:30 03:19 Sodium 136 136 Potassium 4.2 4.1 Chloride 104 102 Carbon Dioxide 26 28 BUN 25 H 23 Creatinine 1.23 1.21 Glucose 114 H 107 H Calcium 9.1 8.7 Liver Function 02/08/18 02/09/18 Range/Units 12:30 03:19 Total Bilirubin 1.2 H 1.6 H (0.3-1.0) mg/dL AST 11 L 10 L (13-39) Units/L ALT 10 9 (7-52) Units/L Alkaline Phosphatase 69 63 (34-104) Units/L Albumin 3.7 3.3 L (3.5-5.7) g/dL Urine 02/08/18 Range/Units 14:20 Urine Color Cecilia A (Yellow) Urine Clarity Turbid A (Clear) Urine pH 6.5 (5.0-8.0) pH Units Ur Specific [place] 1.021 (1.010-1.025) Urine Protein >=300 H (Neg-Trace) mg/dL Urine Glucose (UA) Normal (Normal) mg/dL - ABG Interpretation ABG results: PT/INR, D-dimer PT 14.3 Seconds (9.4-12.1) H 02/08/18 12:30 - Impressions Impressions Abdomen/Pelvis CT 02/08/18 12:31 IMPRESSION: 1. Asymmetric bladder wall thickening with cystic changes seen within the thickened bladder wall and resultant post obstructive uropathy involving the left kidney. This may be posttraumatic given his urologic procedure. However, a neoplastic process cannot be excluded. 2. Moderate size hiatal hernia. 3. Diverticulosis without obvious inflammation. D/ / Jama Hayes MD / Jama Hayes MD Interpreting Provider: Jama Hayes MD <Anmol De Paz - Last Filed: 02/09/18 17:50> (1) Urinary tract infection Qualifiers: Urinary tract infection type: catheter-associated UTI Indwelling urinary catheter type: indwelling urethral catheter Encounter type: initial encounter Qualified Code(s): T83.511A - Infection and inflammatory reaction due to indwelling urethral catheter, initial encounter; N39.0 - Urinary tract infection, site not specified (2) Hematuria Qualifiers: Hematuria type: gross Qualified Code(s): R31.0 - Gross hematuria (3) Sepsis Qualifiers: Sepsis type: sepsis due to unspecified organism Qualified Code(s): A41.9 - Sepsis, unspecified organism (6) Abdominal pain Qualifiers: Abdominal location: lower abdomen, unspecified Qualified Code(s): R10.30 - Lower abdominal pain, unspecified (7) GERD (gastroesophageal reflux disease) Qualifiers: Esophagitis presence: esophagitis presence not specified Qualified Code(s): K21.9 - Gastro-esophageal reflux disease without esophagitis <Will Mancera - Last Filed: 02/09/18 18:47> (1) Urinary tract infection Qualifiers: Urinary tract infection type: catheter-associated UTI Indwelling urinary catheter type: indwelling urethral catheter Encounter type: initial encounter Qualified Code(s): T83.511A - Infection and inflammatory reaction due to indwelling urethral catheter, initial encounter; N39.0 - Urinary tract infection, site not specified (2) Sepsis Qualifiers: Sepsis type: sepsis due to unspecified organism Qualified Code(s): A41.9 - Sepsis, unspecified organism (3) Hematuria Qualifiers: Hematuria type: gross Qualified Code(s): R31.0 - Gross hematuria (4) Abdominal pain Qualifiers: Abdominal location: lower abdomen, unspecified Qualified Code(s): R10.30 - Lower abdominal pain, unspecified (5) GERD (gastroesophageal reflux disease) Qualifiers: Esophagitis presence: esophagitis presence not specified Qualified Code(s): K21.9 - Gastro-esophageal reflux disease without esophagitis
[2018-02-09] MEDS ORDERED: *HR* LORazepam 0.5 MG TABLET PO PRN (15:09)
--- NOTE | 2018-02-09 15:43 | Urology Progress Note ---
Date of Encounter: 02/09/18 Time of Encounter: 15:40 - Assessment and Plan (1) Bladder spasm Current Visit: Yes Status: Acute Assessment and plan: Resolved with treatment of UTI and use of B&O suppository. Patient currently comfortable and without complaint. Plan: Home with [place] in place. Outpatient follow-up with Dr. Martinez as directed. Progress Note Subjective: feels better Objective Initial Vital Signs Temp Pulse Resp BP Pulse Ox 98.2 F 104 18 131/62 96 02/08/18 11:41 02/08/18 11:41 02/08/18 11:41 02/08/18 11:41 02/08/18 11:41 - General physical appearance Present: no distress - Respiratory Present: normal respiratory effort - Integumentary Present: no growths - Musculoskeletal Present: normal gait - Psychiatric Present: oriented to time, oriented to person, oriented to place - Labs 02/09/18 03:19 02/09/18 03:19 Diabetes panel 02/09/18 Range/Units 03:19 Sodium 136 (136-145) mEq/L Potassium 4.1 (3.5-5.1) mEq/L Chloride 102 (98-107) mEq/L Carbon Dioxide 28 (23-29) mEq/L BUN 23 (8-23) mg/dL Creatinine 1.21 (0.70-1.30) mg/dL Glucose 107 H (70-105) mg/dL Calcium 8.7 (8.6-10.3) mg/dL AST 10 L (13-39) Units/L ALT 9 (7-52) Units/L Alkaline Phosphatase 63 (34-104) Units/L Albumin 3.3 L (3.5-5.7) g/dL Triglycerides 74 (< 150) mg/dL HDL Cholesterol 78 H (40-59) mg/dL Calcium panel 02/09/18 Range/Units 03:19 Calcium 8.7 (8.6-10.3) mg/dL Albumin 3.3 L (3.5-5.7) g/dL Pituitary panel 02/09/18 Range/Units 03:19 Sodium 136 (136-145) mEq/L Potassium 4.1 (3.5-5.1) mEq/L Chloride 102 (98-107) mEq/L Carbon Dioxide 28 (23-29) mEq/L BUN 23 (8-23) mg/dL Creatinine 1.21 (0.70-1.30) mg/dL Glucose 107 H (70-105) mg/dL Calcium 8.7 (8.6-10.3) mg/dL Adrenal panel 02/09/18 Range/Units 03:19 Sodium 136 (136-145) mEq/L Potassium 4.1 (3.5-5.1) mEq/L Chloride 102 (98-107) mEq/L Carbon Dioxide 28 (23-29) mEq/L BUN 23 (8-23) mg/dL Creatinine 1.21 (0.70-1.30) mg/dL Glucose 107 H (70-105) mg/dL Calcium 8.7 (8.6-10.3) mg/dL Total Bilirubin 1.6 H (0.3-1.0) mg/dL AST 10 L (13-39) Units/L ALT 9 (7-52) Units/L Alkaline Phosphatase 63 (34-104) Units/L Albumin 3.3 L (3.5-5.7) g/dL Consult Discharge Plan - Plan Referrals: Jordin Jacobo DO [Primary Care Provider] -
[2018-02-10] MEDS: Melatonin 3 MG TABLET PO SCH (00:21)
[2018-02-10] MEDS: Piperacillin/Tazobactam 3.375 GM in 0.9 % Sodium Chloride Mini Bag 100 ML IVPB SCH ×2 (00:21→08:52)
[2018-02-10 05:18] LABS: Basophils % 0.3 %; Eosinophils # 0.2 K/mcL (0.0-0.6); Eosinophils % 1.8 %; Hematocrit 40.9 % (37.5-50.1); Hemoglobin 13.6 g/dL (12.9-16.9); Immature Granulocytes % 0.3 % (0-4); Lymphocytes # 1.5 K/mcL (0.6-4.6); Lymphocytes % 12.4 %; Mean Corpuscular HGB Conc 33.3 g/dL (31.6-35.5); Mean Corpuscular Hemoglobin 30.9 pg (28.0-33.3); Mean Platelet Volume 11.4 fL (9.4-12.4); Monocytes # 1.1 K/mcL (0.0-1.3); Monocytes % 9.1 %; Neutrophils # 8.9 K/mcL (1.6-8.9); Platelet Count 179 K/mcL (140-400); Red Cell Distribution Width 14.3 % (11.5-14.5); Segmented Neutrophils % 76.1 %
[2018-02-10 05:33] LABS: Alanine Aminotransferase 9 Units/L (7-52); Albumin 3.2 g/dL (3.5-5.7); Albumin/Globulin Ratio 1.2 (1.1-2.2); Alkaline Phosphatase 60 Units/L (34-104); Aspartate Amino Transferase 12 Units/L (13-39); BUN/Creatinine Ratio 14 (6-26); Bilirubin,Total 0.8 mg/dL (0.3-1.0); Blood Urea Nitrogen 17 mg/dL (8-23); Calcium 8.5 mg/dL (8.6-10.3); Carbon Dioxide 27 mEq/L (23-29); Chloride 103 mEq/L (98-107); Globulin 2.7 g/dL (2.4-3.5); Glucose 100 mg/dL (70-105); Osmolality,Calculated 284 (280-300); Potassium 3.6 mEq/L (3.5-5.1); Sodium 136 mEq/L (136-145); Total Protein 5.9 g/dL (6.4-8.9); eGFR For Non-African Americans 57 (> 60)
[2018-02-10] MEDS: Sucralfate 1 GM TABLET PO SCH (06:29)
[2018-02-10 07:24] VITALS: BP 118/87
--- NOTE | 2018-02-10 07:35 | Urology Progress Note ---
Date of Encounter: 02/10/18 Time of Encounter: 07:32 - Assessment and Plan (1) Hematuria Current Visit: Yes Status: Acute Qualifiers: Hematuria type: gross Qualified Code(s): R31.0 - Gross hematuria (2) Urinary tract infection Current Visit: Yes Status: Acute Assessment and plan: no cultures available. recommend 2 weeks of abx. if patient discharged home today then keep scheduled appt tomorrow. if patient stays then will get cath out tomorrow. Qualifiers: Urinary tract infection type: catheter-associated UTI Indwelling urinary catheter type: indwelling urethral catheter Encounter type: initial encounter Qualified Code(s): T83.511A - Infection and inflammatory reaction due to in dwelling urethral catheter, initial encounter; N39.0 - Urinary tract infection, site not specified Progress Note Narrative: patient seen. feeling much better. Objective Initial Vital Signs Temp Pulse Resp BP Pulse Ox 98.2 F 104 18 131/62 96 02/08/18 11:41 02/08/18 11:41 02/08/18 11:41 02/08/18 11:41 02/08/18 11:41 - General physical appearance Present: well developed, well nourished - Abdomen Present: soft. Absent: tender - Genitourinary Present: other (clear but dark yellow urine) - Labs 02/10/18 04:16 02/10/18 04:16 Diabetes panel 02/10/18 Range/Units 04:16 Sodium 136 (136-145) mEq/L Potassium 3.6 (3.5-5.1) mEq/L Chloride 103 (98-107) mEq/L Carbon Dioxide 27 (23-29) mEq/L BUN 17 (8-23) mg/dL Creatinine 1.21 (0.70-1.30) mg/dL Glucose 100 (70-105) mg/dL Calcium 8.5 L (8.6-10.3) mg/dL AST 12 L (13-39) Units/L ALT 9 (7-52) Units/L Alkaline Phosphatase 60 (34-104) Units/L Albumin 3.2 L (3.5-5.7) g/dL Calcium panel 02/10/18 Range/Units 04:16 Calcium 8.5 L (8.6-10.3) mg/dL Albumin 3.2 L (3.5-5.7) g/dL Pituitary panel 02/10/18 Range/Units 04:16 Sodium 136 (136-145) mEq/L Potassium 3.6 (3.5-5.1) mEq/L Chloride 103 (98-107) mEq/L Carbon Dioxide 27 (23-29) mEq/L BUN 17 (8-23) mg/dL Creatinine 1.21 (0.70-1.30) mg/dL Glucose 100 (70-105) mg/dL Calcium 8.5 L (8.6-10.3) mg/dL Adrenal panel 02/10/18 Range/Units 04:16 Sodium 136 (136-145) mEq/L Potassium 3.6 (3.5-5.1) mEq/L Chloride 103 (98-107) mEq/L Carbon Dioxide 27 (23-29) mEq/L BUN 17 (8-23) mg/dL Creatinine 1.21 (0.70-1.30) mg/dL Glucose 100 (70-105) mg/dL Calcium 8.5 L (8.6-10.3) mg/dL Total Bilirubin 0.8 (0.3-1.0) mg/dL AST 12 L (13-39) Units/L ALT 9 (7-52) Units/L Alkaline Phosphatase 60 (34-104) Units/L Albumin 3.2 L (3.5-5.7) g/dL Consult Discharge Plan - Plan Referrals: Jordin Jacobo DO [Primary Care Provider] -
[2018-02-10] MEDS: Multivit/Ca/Min/Fe/FA 1 TAB TABLET PO SCH (08:52)
[2018-02-10] MEDS: Finasteride 5 MG TABLET PO SCH (08:52)
[2018-02-10] MEDS: Aspirin Enteric Coated 81 MG Tablet PO SCH (08:52)
[2018-02-10] MEDS: Cholecalciferol (D-3) 1,000 UNIT TABLET PO SCH (08:52)
[2018-02-10] MEDS ORDERED: Famotidine 20 MG TABLET PO SCH (09:00)
--- NOTE | 2018-02-10 10:52 | Discharge Summary ---
<Minna Mancerabh - Last Filed: 02/10/18 17:11> Orders not resulted at time of discharge: Pending orders 02/08/18 15:13 Culture,Urine [RM] Stat 02/11/18 04:00 Complete Blood Count [HEME] AM 0400 Comprehensive Metabolic Panel AM 0400 02/12/18 04:00 Complete Blood Count [HEME] AM 0400 Comprehensive Metabolic Panel AM 0400 Date of Encounter: 02/10/18 Time of Encounter: 09:40 - Discharge Diagnosis (1) Urinary tract infection Priority: Secondary Status: Acute Qualifiers: Urinary tract infection type: catheter-associated UTI Indwelling urinary catheter type: indwelling urethral catheter Encounter type: initial encounter Qualified Code(s): T83.511A - Infection and inflammatory reaction due to indwelling urethral catheter, initial encounter; N39.0 - Urinary tract infection, site not specified (2) Sepsis Priority: Primary Status: Acute Qualifiers: Sepsis type: sepsis due to unspecified organism Qualified Code(s): A41.9 - Sepsis, unspecified organism (3) Hematuria Priority: Secondary Status: Acute Qualifiers: Hematuria type: gross Qualified Code(s): R31.0 - Gross hematuria (4) Abdominal pain Priority: Secondary Status: Acute Qualifiers: Abdominal location: lower abdomen, unspecified Qualified Code(s): R10.30 - Lower abdominal pain, unspecified (5) GERD (gastroesophageal reflux disease) Priority: Secondary Status: Chronic Qualifiers: Esophagitis presence: esophagitis presence not specified Qualified Code(s): K21.9 - Gastro-esophageal reflux disease without esophagitis (6) History of skin cancer Priority: Secondary Status: Resolved (7) DVT prophylaxis Priority: Secondary Status: Acute (8) Anxiety Priority: Secondary Status: Chronic Hospital course: Mr. Coleman is a 87 year old male is admitted to the floor because of hematuria and abdominal pain. Patient recently underwent meatotomy Wednesday placement of indwelling ureteral catheter for the procedure. During the course of hospital stay, patient's hematuria had resolved. Patient did have abdominal pain likely due to bladder spasms and was put on belladone/opiate supositories . She also compared 3 day course of Zosyn for his UTI and is being sent home on Levaquin 5 00 mg for a total of 2 weeks of antibiotics. Patient is following up with his urologist tomorrow as an outpatient. - Time Spent with Patient Total time spent providing and/or coordinating discharge services: - Discharge Medications Prescriptions: RX: Belladonna Alkaloids/Opium [B + O] 30 mg RC Q6H PRN 10 Days #15 supp.rect PRN Reason: bladder spasms Levofloxacin [Levaquin] 500 mg PO ONCE #11 tablet Home Medications: RX: Aspirin [Lo-Dose Aspirin EC] 81 mg PO DAILY 06/03/16 [History] RX: Cholecalciferol (Vitamin D3) [Vitamin D3] 1,000 unit PO DAILY 06/03/16 [History] RX: Famotidine [Pepcid] 40 mg PO BID 06/03/16 [History] RX: Gabapentin [Neurontin] 300 mg PO TID PRN 06/03/16 [History] RX: Melatonin [Melatin] 3 mg PO HS 06/03/16 [History] RX: Multivitamin [Multivitamins] 1 tab PO DAILY 06/03/16 [History] RX: Pantoprazole Sodium 40 mg PO BID 06/03/16 [History] RX: Finasteride [Proscar] 5 mg PO DAILY 02/08/18 [History] RX: Fluticasone Propionate Nasal [Flonase] 1 spr NS DAILY 02/08/18 [History] RX: Sertraline [Zoloft] 150 mg PO DAILY 02/08/18 [History] RX: Sucralfate [Carafate] 1 gm PO QIDAC 02/08/18 [History] RX: predniSONE [PredniSONE] See Taper PO AD 02/08/18 [History] Levofloxacin [Levaquin] 500 mg PO ONCE #11 tablet 02/10/18 [Rx] RX: Belladonna Alkaloids/Opium [B + O] 30 mg RC Q6H PRN 10 Days #15 supp.rect 02/10/18 [Rx] Allergies/Adverse Reactions: Allergy/AdvReac Type Severity Reaction Status Date / Time No Known Allergies Allergy Verified 06/03/16 19:38 Date of admission: 02/08/18 15:39 Primary care physician: Jordin Jacobo DO Consults: 02/08/18 15:12 Consult to Urology [CONS] Stat Consulting Provider: [facility] [place] Reason for Consult: complicated welsh post meatomoy with UTI Call Completed: Yes 02/08/18 16:53 Consult to Navigation Teacher [CONS] Routine Reason for SW Consult: Please assess patient for possible home needs for post-discharge planning. Pt. lost his in June and has a lot of anxiety. 02/08/18 22:30 Consult to Pastoral Services [CONS] Routine Comment: - Constitutional Vitals: Temp Pulse Resp BP Pulse Ox 97.4 F L 76 16 118/87 95 02/10/18 07:14 02/10/18 07:14 02/10/18 07:14 02/10/18 07:14 02/10/18 07:14 General appearance: Present: cooperative, mild distress (Urinary incontinence and abdominal cramping), A&O X 3, pleasant, answers questions appropriately Exam: see below - Patient Status Disposition: Home, Self-Care Condition: Good - Discharge Instructions Instructions: Urinary Tract Infection in Men (DC) Follow Up With: Zach Martinez MD [Partnered Physician] - 02/11/18 8:00 am Additional Instructions: - Follow up with Dr. Martinez as an outpatient tomorrow. - Take 11 more days of PO Levaquin 500 mg once a day. -Continue belladonna/opiate suppositories for bladder spasms. -Drink unsweetened cranberry juice to prevent frequent UTI symptoms. -Continue appointments with PCP. -To the ED immediately should there be any signs of bleeding in urination. <Anmol De Paz - Last Filed: 02/10/18 18:40> - Discharge Diagnosis (1) Urinary tract infection Priority: Primary Status: Resolved Qualifiers: Urinary tract infection type: catheter-associated UTI Indwelling urinary catheter type: indwelling urethral catheter Encounter type: initial encounter Qualified Code(s): T83.511A - Infection and inflammatory reaction due to indwelling urethral catheter, initial encounter; N39.0 - Urinary tract infection, site not specified (2) Hematuria Status: Resolved Qualifiers: Hematuria type: gross Qualified Code(s): R31.0 - Gross hematuria (3) Sepsis Priority: Secondary Status: Resolved Qualifiers: Sepsis type: sepsis due to unspecified organism Qualified Code(s): A41.9 - Sepsis, unspecified organism (4) History of skin cancer Status: Resolved (5) DVT prophylaxis Status: Acute (6) Abdominal pain Status: Resolved Qualifiers: Abdominal location: lower abdomen, unspecified Qualified Code(s): R10.30 - Lower abdominal pain, unspecified (7) GERD (gastroesophageal reflux disease) Status: Chronic Qualifiers: Esophagitis presence: esophagitis presence not specified Qualified Code(s): K21.9 - Gastro-esophageal reflux disease without esophagitis (8) Anxiety Status: Chronic Hospital course: Mr. Coleman is a 87 year old male - Time Spent with Patient Total time spent providing and/or coordinating discharge services: Date of admission: 02/08/18 15:39 Primary care physician: Jordin Jacobo DO Consults: 02/08/18 15:12 Consult to Urology [CONS] Stat Consulting Provider: [facility] [place] Reason for Consult: complicated welsh post meatomoy with UTI Call Completed: Yes 02/08/18 16:53 Consult to Navigation Teacher [CONS] Routine Reason for SW Consult: Please assess patient for possible home needs for post-discharge planning. Pt. lost his in June and has a lot of anxiety. 02/08/18 22:30 Consult to Pastoral Services [CONS] Routine Comment: - Constitutional Vitals: Temp Pulse Resp BP Pulse Ox 97.4 F L 76 16 118/87 95 02/10/18 07:14 02/10/18 07:14 02/10/18 07:14 02/10/18 07:14 02/10/18 07:14 - Attending Attestation I examined this patient and my medical decision-making was reviewed with the Resident Physician on 02/10/18. I agree with the documented findings, disposition and treatment plan as described except to the extent set forth below. Mr Coleman has been in observation for weakness due to UTI and bladder spasms. He is improved today. He is afebrile and ready for discharge home. Exam alert comfortable Mucus membranes dry Heart reg No wheeze abd soft Plan D/C home today.
--- NOTE | 2018-02-12 21:37 | Electrocardiograph Report ---
[address] [address] Test Date: 2018-02-08 Pat Name: Daniel Coleman Department: 115 Room: 3A Gender: M Trading Manager: CHIQUITA : [id number] Requested By: [id number] Order Number: [id number] Reading MD: Dequan Hernandez Measurements Intervals [place] Rate: 70 P: 48 MS: 145 QRS: 67 QRSD: 90 T: 75 QT: 388 QTc: 408 Interpretive Statements SINUS RHYTHM WITH SINUS ARRHYTHMIA Electronically Signed On 02-12-2018 21:35:55 EDT by Dequan Hernandez
== END 2018-02-10 13:05 | disposition home or self-care (01) ==
LOC: EMEROOARM 11:39 → 3ANU 11:39 → SUATTDRO 15:39 → 3ANU 17:25
PROVIDERS: ADMIT Internal Medicine Nephrology; ATTEND Internal Medicine